=== PATIENT | male | born 1965 | race African-American/Black ===

== ENCOUNTER 2016-08-14 23:56 | Emergency (ER) | payer OTHER ==
[~2016-08-14] VITALS: Ht 177.8 cm; Wt 115.9 kg
[~2016-08-14 23:56] MED LIST: ALBU17AE27 IH; ALBU8HFA4 IH; BECL8.7A5 IH; WARF5 PO
[2016-08-15] MEDS ORDERED: IPRATROPIUM BROMIDE 0.5 MG/2.5 ML NEB SOLUTION NEB ONE (00:30)
[2016-08-15] MEDS ORDERED: ALBUTEROL SULFATE 2.5 MG/0.5 ML NEB SOLUTION NEB ONE (00:30)
[2016-08-15] MEDS ORDERED: 0.9% SODIUM CHLORIDE 5 ML NEB SOLUTION NEB ONE ×2 (00:36→01:25)
[2016-08-15] MEDS ORDERED: ALBUTEROL SULFATE 5 MG/ML 20 ML NEB SOLN [BULK] NEB ONE (01:00)
[2016-08-15] MEDS ORDERED: MethylPREDNISolone SOD SUCC 125 MG/2 ML VIAL IM ONE (01:00)
[2016-08-15] MEDS ORDERED: PredniSONE 20 MG TABLET PO ONE (02:15)
[2016-08-15 02:49] VITALS: BP 134/86
== END 2016-08-15 02:53 | disposition home or self-care (01) ==
LOC: EMS 23:57
DX: J45.901 Unspecified asthma with (acute) exacerbation (principal); F17.210 Nicotine dependence, cigarettes, uncomplicated
CPT/HCPCS: 71010; 93005; 93041; 94640; 94644; 99285; J7512; J7611; J7613

== ENCOUNTER 2017-02-27 17:32 | Emergency (ER) | payer OTHER ==
[~2017-02-27] VITALS: Ht 177.8 cm; Wt 90.9 kg
[2017-02-27] MEDS ORDERED: IPRATROPIUM BROMIDE 0.5 MG/2.5 ML NEB SOLUTION NEB ONE ×2 (18:00→18:30)
[2017-02-27] MEDS ORDERED: ALBUTEROL SULFATE 2.5 MG/0.5 ML NEB SOLUTION NEB ONE (18:00)
[2017-02-27] MEDS ORDERED: 0.9% SODIUM CHLORIDE 5 ML NEB SOLUTION NEB ONE (18:27)
[2017-02-27] MEDS ORDERED: ALBUTEROL SULFATE 5 MG/ML 20 ML NEB SOLN [BULK] NEB ONE (18:30)
[2017-02-27] MEDS ORDERED: ALBUTEROL SULFATE HFA 90 MCG/PUFF 8 GM INHALER IH ONE (19:15)
[2017-02-27 19:37] VITALS: BP 143/82
== END 2017-02-27 19:57 | disposition home or self-care (01) ==
LOC: EMS 17:34
DX: J45.901 Unspecified asthma with (acute) exacerbation (principal); F17.210 Nicotine dependence, cigarettes, uncomplicated; M79.89 Other specified soft tissue disorders; G89.29 Other chronic pain; J45.909 Unspecified asthma, uncomplicated; Z79.01 Long term (current) use of anticoagulants
CPT/HCPCS: 94644; 99285; 99406; J7613; 94640; J3535

== ENCOUNTER 2018-04-05 19:15 | Emergency (ER) | payer OTHER ==
[~2018-04-05] VITALS: Ht 175.3 cm; Wt 81.8 kg
[~2018-04-05 19:15] MED LIST changes: -ALBU17AE27 IH
[2018-04-05 20:06] VITALS: BP 123/87
[2018-04-05] MEDS ORDERED: IPRAHFA IH (20:11)
[2018-04-05] MEDS ORDERED: ALBUTEROL SULFATE 2.5 MG/0.5 ML NEB SOLUTION NEB ONE (20:15)
== END 2018-04-05 21:13 | disposition left against medical advice (07) ==
LOC: EMS 19:16
DX: R06.02 Shortness of breath (principal); Z53.21 Procedure and treatment not carried out due to patient leaving prior to being seen by health care provider
CPT/HCPCS: 94640; J7613

== ENCOUNTER 2018-10-08 15:05 | Emergency (ER) | payer SELFPAY ==
[~2018-10-08] VITALS: Ht 177.8 cm; Wt 104.5 kg
[~2018-10-08 15:05] MED LIST changes: -BECL8.7A5 IH; +IPRAHFA IH; -WARF5 PO
[2018-10-08] MEDS ORDERED: ALBUTEROL SULFATE 2.5 MG/0.5 ML NEB SOLUTION NEB ONE (17:00)
[2018-10-08] MEDS ORDERED: IPRATROPIUM BROMIDE 0.5 MG/2.5 ML NEB SOLUTION NEB ONE (17:00)
[2018-10-08 17:52] VITALS: BP 133/87
== END 2018-10-08 18:25 | disposition left against medical advice (07) ==
LOC: EMS 15:06
DX: J45.901 Unspecified asthma with (acute) exacerbation (principal); F17.210 Nicotine dependence, cigarettes, uncomplicated
CPT/HCPCS: 94640; 99406

== ENCOUNTER 2019-05-05 14:09 | Emergency (ER) | payer MEDICAID ==
[~2019-05-05] VITALS: Ht 177.8 cm; Wt 113.6 kg
[2019-05-05 14:13] VITALS: BP 113/77
[2019-05-05] MEDS ORDERED: ALBUTEROL SULFATE 2.5 MG/0.5 ML NEB SOLUTION NEB ONE (14:30)
[2019-05-05] MEDS ORDERED: IPRATROPIUM BROMIDE 0.5 MG/2.5 ML NEB SOLUTION NEB ONE ×2 (14:30→15:30)
[2019-05-05] MEDS ORDERED: 0.9% SODIUM CHLORIDE 5 ML NEB SOLUTION NEB ONE ×2 (14:38→15:37)
[2019-05-05] MEDS ORDERED: ALBUTEROL SULFATE 5 MG/ML 20 ML NEB SOLN [BULK] NEB ONE (15:30)
[2019-05-05] MEDS ORDERED: ALBUTEROL SULFATE HFA 90 MCG/PUFF 8 GM INHALER IH ONE (16:30)
== END 2019-05-05 17:40 | disposition home or self-care (01) ==
LOC: EMS 14:13
DX: J45.901 Unspecified asthma with (acute) exacerbation (principal); F17.210 Nicotine dependence, cigarettes, uncomplicated; Z79.899 Other long term (current) drug therapy; Z86.718 Personal history of other venous thrombosis and embolism
CPT/HCPCS: 94640; 94644; J3535

== ENCOUNTER 2019-08-03 10:14 | Emergency (ER) | payer MEDICAID ==
[~2019-08-03] VITALS: Ht 177.8 cm; Wt 113.6 kg
[2019-08-03] MEDS ORDERED: NAPR220T57 PO (10:59)
[2019-08-03] MEDS ORDERED: IBUPROFEN 800 MG TABLET PO ONE (12:00)
[2019-08-03] MEDS ORDERED: ALBUTEROL SULFATE HFA 90 MCG/PUFF 8 GM INHALER IH ONE (12:00)
[2019-08-03] MEDS ORDERED: IPRATROPIUM BROMIDE 0.5 MG/2.5 ML NEB SOLUTION NEB ONE (12:00)
[2019-08-03] MEDS ORDERED: ALBUTEROL SULFATE 2.5 MG/0.5 ML NEB SOLUTION NEB ONE (12:00)
[2019-08-03 13:18] VITALS: BP 144/78
== END 2019-08-03 13:45 | disposition home or self-care (01) ==
LOC: EMS 10:15
DX: J45.901 Unspecified asthma with (acute) exacerbation (principal); R53.81 Other malaise; F17.210 Nicotine dependence, cigarettes, uncomplicated; Z86.718 Personal history of other venous thrombosis and embolism; Z79.899 Other long term (current) drug therapy
CPT/HCPCS: 94640; 99406; J3535

== ENCOUNTER 2022-03-31 16:50 | Emergency (ER) | payer MEDICAID ==
[~2022-03-31] VITALS: Ht 177.8 cm; Wt 120.5 kg
[~2022-03-31 16:50] MED LIST changes: +NAPR220T57 PO
[2022-03-31 16:55] VITALS: BP 143/92
[2022-03-31] MEDS ORDERED: BACITRACIN 28 GM OINTMENT TP ONE (18:15)
[2022-03-31] MEDS ORDERED: HYDROGEN PEROXIDE 118 ML SOLUTION TP ONE (18:15)
[2022-03-31] MEDS ORDERED: ACETAMINOPHEN 500 MG TABLET PO ONE (18:45)
== END 2022-03-31 19:30 | disposition home or self-care (01) ==
LOC: EMS 16:50
DX: L97.919 Non-pressure chronic ulcer of unspecified part of right lower leg with unspecified severity (principal); B87.1 Wound myiasis; J45.909 Unspecified asthma, uncomplicated; F17.210 Nicotine dependence, cigarettes, uncomplicated; Z86.718 Personal history of other venous thrombosis and embolism
CPT/HCPCS: 99282

== ENCOUNTER 2024-10-24 11:48 | Emergency (ER) | payer MEDICAID, OTHER ==
[~2024-10-24] VITALS: Ht 177.8 cm; Wt 133.0 kg
[~2024-10-24 11:48] MED LIST changes: +ALBU18HF12 PO; -ALBU8HFA4 IH; +BUDE10.2 PO; +FERR-72 PO; +LOSA1TAB37 PO; -NAPR220T57 PO
[2024-10-24 12:18] VITALS: TEMP 98.8
[2024-10-24] MEDS: FentaNYL 50 MCG/HOUR PATCH TD ONE (16:07)
[2024-10-24 16:36] VITALS: BP 116/77; PULSE 84; RESP 18; O2SAT 96
== END 2024-10-24 17:12 | disposition home or self-care (01) ==
LOC: EMS 12:07
DX: S31.000A Unspecified open wound of lower back and pelvis without penetration into retroperitoneum, initial encounter (principal); E11.9 Type 2 diabetes mellitus without complications; I10 Essential (primary) hypertension; J44.89 Other specified chronic obstructive pulmonary disease; E78.00 Pure hypercholesterolemia, unspecified; F17.210 Nicotine dependence, cigarettes, uncomplicated; Z86.718 Personal history of other venous thrombosis and embolism; Z79.51 Long term (current) use of inhaled steroids; Z79.899 Other long term (current) drug therapy; X58.XXXA Exposure to other specified factors, initial encounter; Y93.89 Activity, other specified; Y92.89 Other specified places as the place of occurrence of the external cause; Y99.8 Other external cause status
CPT/HCPCS: 99283